=== PATIENT | female | born 1950 | race Caucasian/White ===

== ENCOUNTER 2018-03-20 17:10 | Emergency (ER) | payer OTHER, MEDICARE ==
[~2018-03-20] VITALS: Ht 160 cm; Wt 82.6 kg
[~2018-03-20 17:10] MED LIST: CADUET 10 MG-11 EACH; CATAPRES0.2 MG PO; CLONIDINE HCL0.1 MG PO; LEVOXYL75 MCG PO
--- NOTE | 2018-03-20 18:27 | Diagnostic Imaging Report ---
Foot complete CPT code: 22647 Indication: Twisting injury Technique: A.P., oblique and lateral views of the left foot obtained. Comparison: None Findings: The area of pain is lateral. The bones are diffusely demineralized. Calcaneus is intact and normal in morphology. The midfoot is intact. No evidence of displaced fracture or dislocation involving any of the digits. No radiopaque foreign bodies in the soft tissues. IMPRESSION: No acute traumatic pathology. Signed by: Dr. Felipa Andino MD on 03/20/2018 6:23 PM
[2018-03-20 19:03] VITALS: BP 136/83
== END 2018-03-20 19:13 | disposition home or self-care (01) ==
LOC: ER 17:10
DX: S93.622A Sprain of tarsometatarsal ligament of left foot, initial encounter (principal); I10 Essential (primary) hypertension; E03.9 Hypothyroidism, unspecified
CPT/HCPCS: 99283

== ENCOUNTER → 2022-07-23 | Outpatient (CLI) | payer MEDICARE | LOC: CT 11:04 | PROVIDERS: ATTEND Family Medicine | DX: I13.10 Hypertensive heart and chronic kidney disease without heart failure, with stage 1 through stage 4 chronic kidney disease, or unspecified chronic kidney disease (principal); N18.2 Chronic kidney disease, stage 2 (mild); F17.210 Nicotine dependence, cigarettes, uncomplicated | CPT/HCPCS: 71250 ==

== ENCOUNTER → 2024-07-20 | Outpatient (REF) | payer MEDICARE | LOC: CT 13:41 | PROVIDERS: ATTEND Nurse Practitioner Family | DX: Z87.891 Personal history of nicotine dependence (principal) | CPT/HCPCS: 71250 ==

== ENCOUNTER → 2024-08-08 | Outpatient (REF) | payer MEDICARE | LOC: RESP 09:45 → EDSTATUS 10:00 | PROVIDERS: ATTEND Internal Medicine Critical Care Medicine | DX: R06.02 Shortness of breath (principal); J30.9 Allergic rhinitis, unspecified; R06.2 Wheezing; E66.9 Obesity, unspecified; Z87.891 Personal history of nicotine dependence | CPT/HCPCS: 94060; 94664; 94727; 94729 ==

== ENCOUNTER → 2025-08-30 | Outpatient (REF) | payer MEDICARE | LOC: RESP 09:40 | PROVIDERS: ATTEND Nurse Practitioner Family | DX: R06.02 Shortness of breath (principal); J44.9 Chronic obstructive pulmonary disease, unspecified; J45.909 Unspecified asthma, uncomplicated; Z87.891 Personal history of nicotine dependence | CPT/HCPCS: 94060; 94727; 94729 ==